=== PATIENT | male | born 1960 | race Caucasian/White ===

== ENCOUNTER 2017-12-24 14:59 | Inpatient (IN) | payer MEDICARE, MEDICAID ==
[~2017-12-24] VITALS: Ht 185.4 cm; Wt 98.1 kg
[~2017-12-24 14:59] MED LIST: HYDR-3972 PO; IBUP-1984 PO; LISI1TAB11 PO
[2017-12-24] MEDS ORDERED: aspirin 81mg tab.chew PO ONE ×2 (15:15→19:05)
[2017-12-24 15:32] LABS: BASOPHILS # (AUTO) 0.1 X10'3 (0-0.2); BASOPHILS % (AUTO) 0.6 % (0-1); EOSINOPHILS # (AUTO) 0.3 X10'3 (0-0.9); HEMATOCRIT 46.7 % (42.0-52.0); LYMPHOCYTES # (AUTO) 2.7 X10'3 (1.1-4.8); LYMPHOCYTES % (AUTO) 20.4 % (21-51); MEAN CORPUSCULAR HEMOGLOBIN 30.7 PG (27.0-31.0); MEAN CORPUSCULAR HGB CONC 34.3 % (33.0-36.5); MEAN CORPUSCULAR VOLUME 89.4 FL (78-98); MEAN PLATELET VOLUME 9.3 FL (7.4-10.4); MONOCYTES # (AUTO) 0.8 X10'3 (0-0.9); MONOCYTES % (AUTO) 6.2 % (2-12); NEUTROPHILS # (AUTO) 9.1 X10'3 (1.8-7.7); NEUTROPHILS % (AUTO) 70.8 % (42-75); PLATELET COUNT 240 X10'3 (140-440); RED BLOOD COUNT 5.22 X10'6 (4.70-6.10); RED CELL DISTRIBUTION WIDTH 12.5 % (11.5-14.5)
[2017-12-24 15:42] LABS: INR 0.9 INR; PARTIAL THROMBOPLASTIN TIME 26 SECONDS (22-32); PROTHROMBIN TIME 9.7 SECONDS (9.0-12.0)
[2017-12-24 15:47] LABS: ALANINE AMINOTRANSFERASE 20 U/L (12-78); ALBUMIN 3.8 G/DL (3.4-5.0); ALKALINE PHOSPHATASE 90 IU/L (46-116); ANION GAP 11 (8-16); ASPARTATE AMINO TRANSFERASE 12 U/L (10-37); BILIRUBIN,TOTAL 0.5 MG/DL (0.1-1.0); BLOOD UREA NITROGEN 22 MG/DL (7-18); BUN/CREATININE RATIO 20.6 (5.4-32.0); CALCIUM 9.4 MG/DL (8.5-10.1); CHLORIDE 105 MMOL/L (99-107); CREATININE 1.07 MG/DL (0.60-1.10); GLUCOSE 87 MG/DL (70-104); POTASSIUM 3.9 MMOL/L (3.5-5.1); SODIUM 141 MMOL/L (135-145); TOTAL CARBON DIOXIDE 24.9 MMOL/L (24-32); TOTAL PROTEIN 7.6 G/DL (6.4-8.2); eGFR 71 ML/MIN
[2017-12-24] MEDS ORDERED: nitroGLYCERIN 0.4mg/hour patch TD ONE (19:05)
[2017-12-24] MEDS ORDERED: NO HOME MEDS (19:51)
[2017-12-24] MEDS ORDERED: ibuprofen tablet 400 MG TABLET PO ONE (20:00)
[2017-12-24] MEDS ORDERED: ondansetron/PF 4mg/2ml inj IV PRN (21:30)
[2017-12-24] MEDS ORDERED: dextrose ORAL solution 15 GM/59 ML bottle PO PRN ×2 (21:30)
[2017-12-24] MEDS ORDERED: potassium Cl 20 mEq SR tablet PO PRN ×2 (21:30)
[2017-12-24] MEDS ORDERED: aminophylline 250mg/10ml inj. IV PRN (21:30)
[2017-12-24] MEDS ORDERED: insulin Lispro (HumaLOG) vial - multi-dose SQ SCH (21:30)
[2017-12-24] MEDS ORDERED: magnesium 4gm in 100ml NS 100 ML IV PRN (21:30)
[2017-12-24] MEDS ORDERED: acetaminophen 325mg tablet PO PRN (21:30)
[2017-12-24] MEDS ORDERED: potassium Cl 40MEQ/NS 500ml 500 ML IV PRN ×2 (21:30)
[2017-12-24] MEDS ORDERED: nitroGLYCERIN 0.4mg SUBLingual tab SL PRN (21:30)
[2017-12-24] MEDS ORDERED: mag hydrox/Alum hydrox/simeth 30ml oral suspension PO PRN (21:30)
[2017-12-24] MEDS ORDERED: metoprolol tartrate 1mg/ml inj IV PRN (21:30)
[2017-12-24] MEDS ORDERED: regadenoson 0.4mg/5ml syringe IV PRN (21:30)
[2017-12-24] MEDS ORDERED: MESSAGE TO PHARMACY PO ONE (21:30)
[2017-12-24] MEDS ORDERED: magnesium 2GM in 50ml NS 50 ML IV PRN (21:30)
[2017-12-24] MEDS ORDERED: dextrose 50%-water 50ml dispensing syringe IV PRN ×2 (21:30)
[2017-12-24] MEDS ORDERED: glucagon, human recombinant 1mg kit SUBCUT PRN (21:30)
[2017-12-24] MEDS ORDERED: magnesium hydroxide 30ml (MOM) UD suspension PO PRN (21:30)
[2017-12-24] MEDS ORDERED: ipratropium/albuterol 3ml nebule NEB PRN (21:30)
[2017-12-24] MEDS ORDERED: enoxaparin 100mg/ml syringe SQ SCH (21:30)
[2017-12-24 22:01] LABS: HEMOGLOBIN A1C 5.5 % (4.5-6.2)
[2017-12-24 23:15] VITALS: BP 116/79
[2017-12-25] VITALS (9 sets, daily range): BP systolic 115–141; BP diastolic 53–87
[2017-12-25] MEDS: heparin, porcine 5000 units/ml vial SQ SCH ×2 (03:35→08:00)
[2017-12-25 04:13] LABS: ALANINE AMINOTRANSFERASE 19 U/L (12-78); ALBUMIN 3.4 G/DL (3.4-5.0); ALBUMIN/GLOBULIN RATIO 1.1 (1.1-1.5); ALKALINE PHOSPHATASE 80 IU/L (46-116); ANION GAP 8 (8-16); ASPARTATE AMINO TRANSFERASE 10 U/L (10-37); BILIRUBIN,TOTAL 0.4 MG/DL (0.1-1.0); BLOOD UREA NITROGEN 26 MG/DL (7-18); BUN/CREATININE RATIO 24.1 (5.4-32.0); CALCIUM 9.3 MG/DL (8.5-10.1); CHLORIDE 108 MMOL/L (99-107); CHOLESTEROL 199 MG/DL (0-200); CREATININE 1.08 MG/DL (0.60-1.10); GLUCOSE 110 MG/DL (70-104); SODIUM 142 MMOL/L (135-145); TOTAL CARBON DIOXIDE 26.4 MMOL/L (24-32); TOTAL PROTEIN 6.6 G/DL (6.4-8.2); eGFR 71 ML/MIN
[2017-12-25 04:14] LABS: CHOL/HDL RATIO 4.6 (0.00-4.99); HDL CHOLESTEROL 43 MG/DL (35-60); LDL CHOLESTEROL 132 MG/DL (50-100); TRIGLYCERIDES 172 MG/DL (20-135)
[2017-12-25 05:44] LABS: BASOPHILS # (AUTO) 0.1 X10'3 (0-0.2); BASOPHILS % (AUTO) 0.6 % (0-1); EOSINOPHILS # (AUTO) 0.4 X10'3 (0-0.9); EOSINOPHILS % (AUTO) 3.9 % (0-6); HEMATOCRIT 45.2 % (42.0-52.0); HEMOGLOBIN 15.9 g/dl (14.0-17.9); LYMPHOCYTES # (AUTO) 2.5 X10'3 (1.1-4.8); LYMPHOCYTES % (AUTO) 22.7 % (21-51); MEAN CORPUSCULAR HEMOGLOBIN 31.5 PG (27.0-31.0); MEAN CORPUSCULAR HGB CONC 35.2 % (33.0-36.5); MEAN CORPUSCULAR VOLUME 89.3 FL (78-98); MEAN PLATELET VOLUME 10.4 FL (7.4-10.4); MONOCYTES # (AUTO) 0.7 X10'3 (0-0.9); MONOCYTES % (AUTO) 6.1 % (2-12); NEUTROPHILS # (AUTO) 7.2 X10'3 (1.8-7.7); NEUTROPHILS % (AUTO) 66.7 % (42-75); PLATELET COUNT 205 X10'3 (140-440); RED BLOOD COUNT 5.06 X10'6 (4.70-6.10); RED CELL DISTRIBUTION WIDTH 13.3 % (11.5-14.5); WHITE BLOOD COUNT 10.9 X10'3 (4.5-11.0)
[2017-12-25] MEDS ORDERED: acetaminophen 325mg tablet PO PRN (07:05)
[2017-12-25] MEDS ORDERED: FLU VACC QS2017-18 36MOS UP/PF 60 MCG/0.5 ML SYRINGE IMVAC ONE (08:00)
[2017-12-25] MEDS ORDERED: K and/or MAG REPLACEMENT MC SCH (08:00)
[2017-12-25] MEDS ORDERED: aminophylline inj. 0 ML IV ONE (09:35)
[2017-12-25] MEDS ORDERED: regadenoson 0.4mg/5ml syringe IV ONE (09:35)
[2017-12-25] MEDS ORDERED: ALBU8HFA PO (12:44)
[2017-12-25] MEDS ORDERED: NICO-630 TOP (12:44)
[2017-12-25] MEDS ORDERED: nicotine 14mg patch - 24hr TD SCH (13:00)
[2017-12-25] MEDS ORDERED: insulin glargine (Lantus) pen - multi-dose SQ SCH (21:00)
== END 2017-12-25 14:00 | disposition home or self-care (01) | DRG 204 ==
LOC: ER 14:59 → ED HOLD 21:29 → SUR 3N 23:10
PROVIDERS: ADMIT Family Medicine; ATTEND Family Medicine
PROC: 4A02XM4 Measurement of Cardiac Total Activity, External Approach (ICD-10-PCS; principal; 2017-12-25)
PROC: 3E073KZ Introduction of Other Diagnostic Substance into Coronary Artery, Percutaneous Approach (ICD-10-PCS; 2017-12-25)
DX: R07.81 Pleurodynia (principal); E11.9 Type 2 diabetes mellitus without complications; E78.5 Hyperlipidemia, unspecified; I10 Essential (primary) hypertension; E78.00 Pure hypercholesterolemia, unspecified; F17.219 Nicotine dependence, cigarettes, with unspecified nicotine-induced disorders; Z79.899 Other long term (current) drug therapy; Z85.841 Personal history of malignant neoplasm of brain; Z82.49 Family history of ischemic heart disease and other diseases of the circulatory system
CPT/HCPCS: 36415; 71045; 78452; 80053; 80061; 82948; 83036; 83605; 83735; 84484; 85025; 85610; 85730; 87040; 87070; 87077; 87186; 93005; 93017; 93306; 94667; 94760; 99285; A9500; J0280; J1644; J1650; J1815; Q2037

== ENCOUNTER 2020-08-19 11:28 | Emergency (ER) | payer MEDICARE, MEDICAID ==
[~2020-08-19] VITALS: Ht 182.9 cm; Wt 131.8 kg
[2020-08-19] MEDS ORDERED: albuterol 2.5 MG/3 ML nebule NEB ONE ×2 (11:50→13:20)
[2020-08-19] MEDS ORDERED: methylPREDNISolone sod succ 125mg/2ml vial IV ONE (11:50)
--- NOTE | 2020-08-19 12:04 | NUR ---
pt does not know if he has been exposed to covid but works at [employer] states he wares a mask all day when at work started to become short of breath yesterday 08/18 around 10 am used inhaler with little help shortness of breath getting worse so he came in to be seen
[2020-08-19 12:20] LABS: BASOPHILS # (AUTO) 0.1 X10'3 (0-0.2); BASOPHILS % (AUTO) 0.8 % (0-1); EOSINOPHILS # (AUTO) 0.5 X10'3 (0-0.9); EOSINOPHILS % (AUTO) 3.9 % (0-6); HEMATOCRIT 44.2 % (42.0-52.0); HEMOGLOBIN 14.8 g/dl (14.0-17.9); LYMPHOCYTES # (AUTO) 1.1 X10'3 (1.1-4.8); LYMPHOCYTES % (AUTO) 9.3 % (21-51); MEAN CORPUSCULAR HEMOGLOBIN 30.1 PG (27.0-31.0); MEAN CORPUSCULAR HGB CONC 33.4 g/dL (33.0-36.5); MEAN CORPUSCULAR VOLUME 90.1 FL (78-98); MEAN PLATELET VOLUME 9.1 FL (7.4-10.4); MONOCYTES # (AUTO) 0.6 X10'3 (0-0.9); NEUTROPHILS # (AUTO) 9.4 X10'3 (1.8-7.7); PLATELET COUNT 222 X10'3 (140-440); RED BLOOD COUNT 4.91 X10'6 (4.70-6.10); RED CELL DISTRIBUTION WIDTH 14.3 % (11.5-14.5); WHITE BLOOD COUNT 11.6 X10'3 (4.5-11.0)
[2020-08-19 12:27] LABS: ALANINE AMINOTRANSFERASE 24 U/L (12-78); ALBUMIN 3.8 G/DL (3.4-5.0); ALBUMIN/GLOBULIN RATIO 1.1 (1.1-1.5); ALKALINE PHOSPHATASE 104 IU/L (46-116); ANION GAP 10 (8-16); ASPARTATE AMINO TRANSFERASE 11 U/L (10-37); BILIRUBIN,TOTAL 0.6 MG/DL (0.1-1.0); BLOOD UREA NITROGEN 13 MG/DL (7-18); BUN/CREATININE RATIO 12.1 (5.4-32.0); CHLORIDE 108 MMOL/L (99-107); CREATININE 1.07 MG/DL (0.60-1.10); GLUCOSE 130 MG/DL (70-104); POTASSIUM 3.8 MMOL/L (3.5-5.1); SODIUM 142 MMOL/L (135-145); TOTAL CARBON DIOXIDE 23.9 MMOL/L (24-32); TOTAL PROTEIN 7.4 G/DL (6.4-8.2); eGFR 71 ML/MIN
[2020-08-19] MEDS ORDERED: magnesium 2GM in 50ml NS 50 ML IV ONE (13:00)
[2020-08-19] MEDS ORDERED: terbutaline 1 mg/ml inj SQ STA (15:19)
[2020-08-19] MEDS ORDERED: ALBU90AE (15:22)
[2020-08-19] MEDS ORDERED: OMEP-50 PO (15:22)
[2020-08-19] MEDS ORDERED: LISI10TA4 (15:22)
[2020-08-19] MEDS ORDERED: albuterol 2.5 MG/3 ML nebule CONTNEB PRN (15:25)
[2020-08-19 15:38] VITALS: BP 168/92
--- NOTE | 2020-08-19 15:39 | NUR ---
pt states that the breathing is better than what it was
[2020-08-19] MEDS ORDERED: IPRA3AMP31 IH (17:17)
[2020-08-19] MEDS ORDERED: PRED20TA PO (17:17)
== END 2020-08-19 17:54 | disposition home or self-care (01) ==
LOC: ER 11:28
DX: J45.901 Unspecified asthma with (acute) exacerbation (principal); I10 Essential (primary) hypertension; E11.9 Type 2 diabetes mellitus without complications; E78.00 Pure hypercholesterolemia, unspecified; Z20.828 Contact with and (suspected) exposure to other viral communicable diseases
CPT/HCPCS: 36415; 71045; 80053; 85025; 87635; 93005; 94640; 94644; 94760; 96365; 96372; 96375; 99285; C9803; J2930; J3105; J3475; A7015

== ENCOUNTER 2020-08-23 12:51 | Emergency (ER) | payer MEDICARE, MEDICAID ==
[~2020-08-23] VITALS: Ht 182.9 cm; Wt 127.3 kg
[~2020-08-23 12:51] MED LIST changes: +ALBU90AE; -HYDR-3972 PO; -IBUP-1984 PO; +IPRA3AMP31 IH; +LISI10TA4; -LISI1TAB11 PO; +OMEP-50 PO; +PRED20TA PO
[2020-08-23] MEDS ORDERED: acetaminophen 325mg tablet PO STA (13:11)
[2020-08-23] MEDS ORDERED: dexamethasone sod phosphate 10mg/ml inj IV STA (13:11)
[2020-08-23] MEDS ORDERED: normal saline 1000ML IV soln IV ONE (13:15)
[2020-08-23] MEDS ORDERED: CefTRIAXone 2gm/D5W 50ml BAG 50 ML IV ONE (13:15)
[2020-08-23] MEDS ORDERED: azithromycin/NS 500mg/250ml 250 ML IV ONE (13:15)
[2020-08-23] MEDS ORDERED: ipratropium/albuterol 3ml nebule NEB ONE (13:15)
[2020-08-23 13:42] LABS: BASOPHILS % (AUTO) 0.2 % (0-1); EOSINOPHILS % (AUTO) 0.3 % (0-6); HEMATOCRIT 43.3 % (42.0-52.0); HEMOGLOBIN 14.2 g/dl (14.0-17.9); LYMPHOCYTES # (AUTO) 1.1 X10'3 (1.1-4.8); LYMPHOCYTES % (AUTO) 7.2 % (21-51); MEAN CORPUSCULAR HEMOGLOBIN 29.6 PG (27.0-31.0); MEAN CORPUSCULAR HGB CONC 32.8 g/dL (33.0-36.5); MEAN CORPUSCULAR VOLUME 90.3 FL (78-98); MEAN PLATELET VOLUME 8.6 FL (7.4-10.4); MONOCYTES # (AUTO) 0.9 X10'3 (0-0.9); MONOCYTES % (AUTO) 5.8 % (2-12); NEUTROPHILS # (AUTO) 13.2 X10'3 (1.8-7.7); NEUTROPHILS % (AUTO) 86.5 % (42-75); PLATELET COUNT 264 X10'3 (140-440); RED CELL DISTRIBUTION WIDTH 14.9 % (11.5-14.5); WHITE BLOOD COUNT 15.3 X10'3 (4.5-11.0)
[2020-08-23 13:57] LABS: ALANINE AMINOTRANSFERASE 23 U/L (12-78); ALBUMIN 3.6 G/DL (3.4-5.0); ALKALINE PHOSPHATASE 94 IU/L (46-116); ANION GAP 8 (8-16); ASPARTATE AMINO TRANSFERASE 9 U/L (10-37); BILIRUBIN,TOTAL 0.4 MG/DL (0.1-1.0); BLOOD UREA NITROGEN 20 MG/DL (7-18); BUN/CREATININE RATIO 20.2 (5.4-32.0); CALCIUM 9.4 MG/DL (8.5-10.1); CHLORIDE 105 MMOL/L (99-107); CREATININE 0.99 MG/DL (0.60-1.10); GLUCOSE 125 MG/DL (70-104); POTASSIUM 4.2 MMOL/L (3.5-5.1); SODIUM 140 MMOL/L (135-145); TOTAL CARBON DIOXIDE 26.6 MMOL/L (24-32); TOTAL PROTEIN 7.2 G/DL (6.4-8.2); eGFR 77 ML/MIN
[2020-08-23] MEDS ORDERED: LEVO500T89 PO (14:35)
[2020-08-23] MEDS ORDERED: PRED10TA23 PO (14:35)
[2020-08-23 14:38] VITALS: BP 176/99
--- NOTE | 2020-08-23 14:40 | NUR ---
COVID SWAB COLLECTED. PT RESTING ON GURNEY AND DENIES ANY REQUESTS AT THIS TIME. CALL LIGHT IN REACH.
[2020-08-23 15:01] LABS: TOTAL CELLS COUNTED 100
[2020-08-23 15:02] LABS: PLATELET ESTIMATE NORMAL
--- NOTE | 2020-08-23 15:13 | NUR ---
RT at bedside for breathing tx.
[2020-08-23] MEDS ORDERED: ketorolac trometh. 30mg/ml inj. IV ONE (15:45)
== END 2020-08-23 16:14 | disposition home or self-care (01) ==
LOC: ER 12:52
DX: J40 Bronchitis, not specified as acute or chronic (principal); Z20.828 Contact with and (suspected) exposure to other viral communicable diseases; E78.00 Pure hypercholesterolemia, unspecified; I10 Essential (primary) hypertension; E11.9 Type 2 diabetes mellitus without complications; Z79.2 Long term (current) use of antibiotics; Z79.899 Other long term (current) drug therapy; Z72.0 Tobacco use
CPT/HCPCS: 36415; 71045; 80053; 83605; 84145; 85007; 85025; 87040; 93005; 94640; 96365; 96367; 96375; 99285; J0456; J0696; J1100; J1885; J7030; 94760

== ENCOUNTER 2021-06-14 05:19 | Day surgery (SDC) | payer MEDICARE, MEDICAID ==
[2021-06-06 15:03] LABS: BASOPHILS # (AUTO) 0.1 X10'3 (0-0.2); EOSINOPHILS # (AUTO) 0.3 X10'3 (0-0.9); EOSINOPHILS % (AUTO) 2.6 % (0-6); LYMPHOCYTES # (AUTO) 2.2 X10'3 (1.1-4.8); LYMPHOCYTES % (AUTO) 18.2 % (21-51); MEAN CORPUSCULAR HEMOGLOBIN 30.4 PG (27.0-31.0); MEAN CORPUSCULAR HGB CONC 33.7 g/dL (33.0-36.5); MEAN CORPUSCULAR VOLUME 90.2 FL (78-98); MEAN PLATELET VOLUME 9.5 FL (7.4-10.4); MONOCYTES # (AUTO) 0.8 X10'3 (0-0.9); MONOCYTES % (AUTO) 6.5 % (2-12); NEUTROPHILS # (AUTO) 8.6 X10'3 (1.8-7.7); NEUTROPHILS % (AUTO) 71.7 % (42-75); PRE OP HEMOGLOBIN 15.2 g/dL (14.0-17.9); PRE OP PLATELET COUNT 258 X10'3 (140-440); RED BLOOD COUNT 4.99 X10'6 (4.70-6.10); RED CELL DISTRIBUTION WIDTH 14.1 % (11.5-14.5)
[2021-06-06 15:21] LABS: ALBUMIN 3.9 G/DL (3.4-5.0); ALBUMIN/GLOBULIN RATIO 1.2 (1.1-1.5); ALKALINE PHOSPHATASE 131 IU/L (46-116); BLOOD UREA NITROGEN 16 MG/DL (7-18); BUN/CREATININE RATIO 13.1 (5.4-32.0); CALCIUM 8.5 MG/DL (8.5-10.1); CHLORIDE 107 MMOL/L (99-107); CREATININE 1.22 MG/DL (0.60-1.10); PRE OP ALT 21 U/L (30-65); PRE OP ANION GAP 12 (8-16); PRE OP AST 12 U/L (10-37); PRE OP BILIRUB, TOTAL 1.1 MG/DL (0.0-1.0); PRE OP GLUCOSE 126 MG/DL (70-104); PRE OP POTASSIUM 3.7 MMOL/L (3.4-5.1); PRE OP SODIUM 142 MMOL/L (135-145); TOTAL CARBON DIOXIDE 23.5 MMOL/L (24-32); TOTAL PROTEIN 7.1 G/DL (6.4-8.2); eGFR 61 ML/MIN
[2021-06-14] VITALS (11 sets, daily range): BP systolic 137–157; BP diastolic 70–95
[~2021-06-14] VITALS: Ht 182.9 cm; Wt 129.3 kg
[~2021-06-14 05:19] MED LIST changes: -ALBU90AE; +ALBU90AE INH; +ATOR40TA72 PO; +FLUT100B3 INH; -IPRA3AMP31 IH; +LISI10TA27 PO; -LISI10TA4; -PRED20TA PO; +ringers solution, lacted 1,000 ML IV SCH
[2021-06-14] MEDS ORDERED: albuterol 2.5 MG/3 ML nebule NEB ONE (05:30)
[2021-06-14] MEDS ORDERED: famotidine 20mg tablet PO ONE (05:30)
[2021-06-14] MEDS ORDERED: vancomycin 1,500 MG in NS 300ml IV soln IV ONE (05:30)
[2021-06-14] MEDS ORDERED: ceFAZolin inj. 3,000 MG in normal saline 100ml IV soln 100 ML IV ONE (05:30)
[2021-06-14] MEDS ORDERED: triamcinolone acetonide 40mg/ml inj ONE (06:56)
[2021-06-14] MEDS ORDERED: BUPIVAcaine 0.5% inj/PF 30 ML ONE (06:57)
[2021-06-14] MEDS ORDERED: fentaNYL /PF 50mcg/ml 5ml ampule ONE (07:15)
[2021-06-14] MEDS ORDERED: midazolam 1 mg/ML 2ml injection ONE (07:15)
[2021-06-14] MEDS ORDERED: dexamethasone sod phosphate 10mg/ml inj ONE (07:15)
[2021-06-14] MEDS ORDERED: sevoflurane 250ml liquid IH ONE (07:15)
[2021-06-14] MEDS ORDERED: ondansetron/PF 4mg/2ml inj ONE (07:15)
[2021-06-14] MEDS ORDERED: LIDOcaine 2% (20mg/ml) 5ml vial ONE (07:19)
[2021-06-14] MEDS ORDERED: propofol inj 20 ML IV ONE (07:19)
[2021-06-14] MEDS ORDERED: morphine 4 MG/ML inj SYRINge IV PRN (08:15)
[2021-06-14] MEDS ORDERED: meperidine/PF 25mg/ml syringe IV PRN ×3 (08:15)
[2021-06-14] MEDS ORDERED: morphine 2 MG/ML inj. syringe IV PRN (08:15)
[2021-06-14] MEDS ORDERED: proCHLORperazine 10 MG/2 ml inj IV PRN (08:15)
[2021-06-14] MEDS ORDERED: ondansetron/PF 4mg/2ml inj IV PRN (08:15)
[2021-06-14] MEDS ORDERED: ringers solution, lacted 1,000 ML IV SCH (08:15)
[2021-06-14] MEDS ORDERED: ketorolac trometh. 30mg/ml inj. ONE (09:03)
--- NOTE | 2021-06-14 09:17 | NUR ---
Received from OR via [facility], accompanied by Anesthesiologist RITIKA and report given by Anesthesiolgist. PATIENT WITH 20G PIV IN LEFT UE RUNNING LR AT 100. BILAT KNEE BIAS DRESSINGS PRESENT THAT ARE CDI. VSS. MEDICATED FOR PAIN UPON ARRIVAL. Addendum: 06/14/21 at 0924 by Shayan Massey RN, RN Amended: Links added.
[2021-06-14] MEDS ORDERED: HYDROcodone/acetaminophen 10/325mg tab PO ONE (09:50)
--- NOTE | 2021-06-14 10:27 | NUR ---
ALL DC CRITERIA FOR HOME HAS BEEN MET. IV TAKEN OUT WITHOUT COMPLICATIONS. PAIN PILLS ADMINISTERED EARLIER. GAVE ALL INSTRUCTIONS TO REGARDING PRESCRIPTION, SLEEP APNEA, GETTING A STUDY DONE IF PATIENT AUDIBLY SNORES, PAIN MED PRESCRIPTION REHAB LIAISON AND WHO TO CALL IF SCRIPT NOT E SCRIPTED IN TIME. AND PATIENT WELL AWARE AND UNDERSTOOD ALL DC INSTRUCTIONS. Addendum: 06/14/21 at 1049 by Shayan Massey RN, RN Amended: Links added.
== END 2021-06-14 09:17 | disposition home or self-care (01) ==
LOC: PAS 05:19
PROVIDERS: ATTEND Orthopaedic Surgery
DX: S83.231A Complex tear of medial meniscus, current injury, right knee, initial encounter (principal); S83.232A Complex tear of medial meniscus, current injury, left knee, initial encounter; S83.281A Other tear of lateral meniscus, current injury, right knee, initial encounter; S83.282A Other tear of lateral meniscus, current injury, left knee, initial encounter; M94.261 Chondromalacia, right knee; M94.262 Chondromalacia, left knee; F31.81 Bipolar II disorder; N40.0 Benign prostatic hyperplasia without lower urinary tract symptoms; G89.4 Chronic pain syndrome; J44.9 Chronic obstructive pulmonary disease, unspecified; K21.9 Gastro-esophageal reflux disease without esophagitis; E03.9 Hypothyroidism, unspecified; M10.9 Gout, unspecified; I10 Essential (primary) hypertension; E78.5 Hyperlipidemia, unspecified; E66.01 Morbid (severe) obesity due to excess calories; Z68.38 Body mass index [BMI] 38.0-38.9, adult; F17.210 Nicotine dependence, cigarettes, uncomplicated; M17.0 Bilateral primary osteoarthritis of knee; Z98.890 Other specified postprocedural states; Z85.841 Personal history of malignant neoplasm of brain; Z79.899 Other long term (current) drug therapy; Z20.822 Contact with and (suspected) exposure to COVID-19; X58.XXXA Exposure to other specified factors, initial encounter; Y93.89 Activity, other specified; Y92.89 Other specified places as the place of occurrence of the external cause; Y99.8 Other external cause status
CPT/HCPCS: 29873; 29879; 29880; 36415; 80053; 82948; 85025; 93005; 94640; 94760; J0690; J1885; J2001; J2175; J2250; J2270; J2704; J3010; J3301; J3370; J7040; J7120; U0003; U0005; Z7506; Z7508; Z7512; A4215; A4618; A6250; A6449; A7000; J1100; J2405

== ENCOUNTER → 2022-11-15 | Day surgery (SDC) | payer MEDICARE, MEDICAID ==
[2022-11-08 15:36] LABS: BASOPHILS # (AUTO) 0.1 X10'3 (0-0.2); BASOPHILS % (AUTO) 0.8 % (0-1); EOSINOPHILS # (AUTO) 0.4 X10'3 (0-0.9); EOSINOPHILS % (AUTO) 3.5 % (0-6); LYMPHOCYTES # (AUTO) 1.9 X10'3 (1.1-4.8); LYMPHOCYTES % (AUTO) 17.7 % (21-51); MEAN CORPUSCULAR HEMOGLOBIN 30.3 PG (27.0-31.0); MEAN CORPUSCULAR HGB CONC 33.3 g/dL (33.0-36.5); MEAN CORPUSCULAR VOLUME 90.8 FL (78-98); MEAN PLATELET VOLUME 9.2 FL (7.4-10.4); MONOCYTES # (AUTO) 0.8 X10'3 (0-0.9); MONOCYTES % (AUTO) 7.2 % (2-12); NEUTROPHILS # (AUTO) 7.8 X10'3 (1.8-7.7); NEUTROPHILS % (AUTO) 70.8 % (42-75); PRE OP HEMATOCRIT 42.7 % (42.0-52.0); PRE OP HEMOGLOBIN 14.2 g/dL (14.0-17.9); PRE OP PLATELET COUNT 229 X10'3 (140-440); RED CELL DISTRIBUTION WIDTH 14.4 % (11.5-14.5)
[2022-11-08 15:37] LABS: CLARITY,URINE CLEAR (Clear); COLOR,URINE YELLOW (Yellow); GLUCOSE, URINE NEGATIVE (Neg); KETONES,URINE TRACE mg/dl (Neg); LEUKOCYTE ESTERASE ,URINE NEGATIVE (Neg); NITRITES, URINE NEGATIVE (Neg); OCCULT BLOOD,URINE NEGATIVE (Neg); PROTEIN,URINE NEGATIVE (Neg); UROBILINOGEN,URINE 0.2 E.U/dL (0.2-1.0)
[2022-11-08 15:39] LABS: UA COLLECTION TYPE CLN CATCH MIDSTREAM
[2022-11-08 15:54] LABS: ALBUMIN 3.8 G/DL (3.4-5.0); ALBUMIN/GLOBULIN RATIO 1.1 (1.1-1.5); ALKALINE PHOSPHATASE 132 IU/L (46-116); BLOOD UREA NITROGEN 24 MG/DL (7-18); BUN/CREATININE RATIO 14.8 (5.4-32.0); CALCIUM 8.9 MG/DL (8.5-10.1); CHLORIDE 107 MMOL/L (99-107); CREATININE 1.62 MG/DL (0.60-1.10); PRE OP ALT 15 U/L (30-65); PRE OP ANION GAP 9 (8-16); PRE OP AST 15 U/L (10-37); PRE OP BILIRUB, TOTAL 0.4 MG/DL (0.0-1.0); PRE OP GLUCOSE 139 MG/DL (70-104); PRE OP POTASSIUM 4.4 MMOL/L (3.4-5.1); PRE OP SODIUM 139 MMOL/L (135-145); TOTAL CARBON DIOXIDE 22.9 MMOL/L (24-32); TOTAL PROTEIN 7.2 G/DL (6.4-8.2); eGFR 44 ML/MIN
[2022-11-15] VITALS (9 sets, daily range): BP systolic 131–155; BP diastolic 80–101
[~2022-11-15] VITALS: Ht 182.9 cm; Wt 141.1 kg
[~2022-11-15] MED LIST changes: -ALBU90AE INH; +BUPIVAcaine 0.5% inj/PF 30 ML ONE; +BUPR-72 PO; +DIPH25CA83 PO; -FLUT100B3 INH; +FLUT1BLS3 INH; +GABA300C; +HYDROcodone/acetaminophen 10/325mg tab PO ONE; -OMEP-50 PO; +OMEP20CA16 PO; +OXYC1TAB17 PO; +ROPIVAcaine 0.5% (5mg/ml) 30ml vial ONE; +albuterol 2.5 MG/3 ML nebule NEB ONE; +bacitracin 15gm ointment TP ONE; +ceFAZolin inj. 3,000 MG in normal saline 100ml IV soln 100 ML IV ONE; +cloNIDine hcl/PF 100mcg/ml inj ONE; +dexamethasone sod phosphate 4mg/ml inj. ONE; +famotidine 20mg tablet PO ONE; +fentaNYL/PF 50MCG/1 ML 2ML syringe ONE; +meperidine/PF 25mg/ml syringe IV PRN; +midazolam 1 mg/ML 2ml injection ONE; +morphine 2 MG/ML inj. syringe IV PRN; +normal saline 1000ml 500 ML IV SCH; +ondansetron/PF 4mg/2ml inj IV PRN; +proCHLORperazine 10 MG/2 ml inj IV PRN; +propofol inj 20 ML IV ONE; +sevoflurane 250ml liquid IH ONE
[2022-11-15] MEDS: morphine 4 MG/ML inj SYRINge IV PRN ×3 (10:35→10:56)
--- NOTE | 2022-11-15 11:46 | NUR ---
I HAVE REVIEWED D/C INSTRUCTIONS WITH PATIENT AND THEY HAVE VERBALIZED UNDERSTANDING OF INSTRUCTIONS. PATIENT D/C HOME WITH ALL BELONGINGS AND FAMILY GAVE TRANSPORT Addendum: 11/15/22 at 1150 by Karolina Arnold RN Amended: Links added.
== END | disposition home or self-care (01) ==
LOC: PAS 05:25
PROVIDERS: ATTEND Podiatrist Foot & Ankle Surgery
DX: T84.84XA Pain due to internal orthopedic prosthetic devices, implants and grafts, initial encounter (principal); M21.42 Flat foot [pes planus] (acquired), left foot; G89.18 Other acute postprocedural pain; F31.81 Bipolar II disorder; N40.0 Benign prostatic hyperplasia without lower urinary tract symptoms; G89.4 Chronic pain syndrome; I10 Essential (primary) hypertension; K21.9 Gastro-esophageal reflux disease without esophagitis; J44.9 Chronic obstructive pulmonary disease, unspecified; M10.9 Gout, unspecified; E78.5 Hyperlipidemia, unspecified; E66.01 Morbid (severe) obesity due to excess calories; Z68.41 Body mass index [BMI] 40.0-44.9, adult; M17.0 Bilateral primary osteoarthritis of knee; M16.11 Unilateral primary osteoarthritis, right hip; Z98.890 Other specified postprocedural states; Z79.899 Other long term (current) drug therapy; Z85.89 Personal history of malignant neoplasm of other organs and systems; F17.210 Nicotine dependence, cigarettes, uncomplicated; Y83.8 Other surgical procedures as the cause of abnormal reaction of the patient, or of later complication, without mention of misadventure at the time of the procedure; Y92.89 Other specified places as the place of occurrence of the external cause
CPT/HCPCS: 20680; 28300; 36415; 64445; 73620; 76000; 80053; 81003; 82948; 85025; 93005; 94640; 94760; A6223; C1713; J0690; J0735; J1100; J2175; J2250; J2270; J2405; J2704; J2795; J3010; J3490; J7030; S0020; Z7506; Z7508; Z7512; A4618; A6253; A6449; A7000; J7120

== ENCOUNTER 2024-02-18 15:39 | Emergency (ER) | payer MEDICARE, MEDICAID ==
[~2024-02-18] VITALS: Ht 182.9 cm; Wt 130.0 kg
[~2024-02-18 15:39] MED LIST changes: -BUPIVAcaine 0.5% inj/PF 30 ML ONE; -HYDROcodone/acetaminophen 10/325mg tab PO ONE; -ROPIVAcaine 0.5% (5mg/ml) 30ml vial ONE; -albuterol 2.5 MG/3 ML nebule NEB ONE; -bacitracin 15gm ointment TP ONE; -ceFAZolin inj. 3,000 MG in normal saline 100ml IV soln 100 ML IV ONE; -cloNIDine hcl/PF 100mcg/ml inj ONE; -dexamethasone sod phosphate 4mg/ml inj. ONE; -famotidine 20mg tablet PO ONE; -fentaNYL/PF 50MCG/1 ML 2ML syringe ONE; -meperidine/PF 25mg/ml syringe IV PRN; -midazolam 1 mg/ML 2ml injection ONE; -morphine 2 MG/ML inj. syringe IV PRN; -normal saline 1000ml 500 ML IV SCH; -ondansetron/PF 4mg/2ml inj IV PRN; -proCHLORperazine 10 MG/2 ml inj IV PRN; -propofol inj 20 ML IV ONE; -ringers solution, lacted 1,000 ML IV SCH; -sevoflurane 250ml liquid IH ONE
[2024-02-18 16:59] LABS: BASOPHILS # (AUTO) 0.1 X10'3 (0-0.2); BASOPHILS % (AUTO) 0.9 % (0-1); EOSINOPHILS # (AUTO) 0.3 X10'3 (0-0.9); EOSINOPHILS % (AUTO) 2.2 % (0-6); HEMATOCRIT 43.3 % (42.0-52.0); HEMOGLOBIN 14.4 g/dl (14.0-17.9); LYMPHOCYTES # (AUTO) 2.3 X10'3 (1.1-4.8); LYMPHOCYTES % (AUTO) 14.6 % (21-51); MEAN CORPUSCULAR HEMOGLOBIN 29.9 PG (27.0-31.0); MEAN CORPUSCULAR HGB CONC 33.1 g/dL (33.0-36.5); MEAN CORPUSCULAR VOLUME 90.4 FL (78-98); MEAN PLATELET VOLUME 9.5 FL (7.4-10.4); MONOCYTES % (AUTO) 6.7 % (2-12); NEUTROPHILS # (AUTO) 11.8 X10'3 (1.8-7.7); NEUTROPHILS % (AUTO) 75.6 % (42-75); PLATELET COUNT 254 X10'3 (140-440); RED CELL DISTRIBUTION WIDTH 14.6 % (11.5-14.5); WHITE BLOOD COUNT 15.5 X10'3 (4.5-11.0)
[2024-02-18 17:09] LABS: ALBUMIN 3.8 G/DL (3.4-5.0); ANION GAP 10 (8-16); BLOOD UREA NITROGEN 29 MG/DL (7-18); BUN/CREATININE RATIO 17.1 (10.0-20.0); CHLORIDE 109 MMOL/L (99-107); GLUCOSE 96 MG/DL (70-104); SODIUM 141 MMOL/L (135-145); eCRCL 49 ML/MIN; eGFR 41 ML/MIN
[2024-02-18] MEDS: normal saline 1000ml 1,000 ML IV ONE (23:32)
[2024-02-18] MEDS ORDERED: iohexol 350MG/ML 100ml bottle IV ONE (23:43)
[2024-02-19 01:24] LABS: BILIRUBIN,URINE NEGATIVE (Neg); CLARITY,URINE CLEAR (Clear); COLOR,URINE YELLOW (Yellow); GLUCOSE, URINE NEGATIVE (Neg); KETONES,URINE NEGATIVE (Neg); LEUKOCYTE ESTERASE ,URINE NEGATIVE (Neg); NITRITES, URINE NEGATIVE (Neg); OCCULT BLOOD,URINE NEGATIVE (Neg); PH,URINE 5.5 (4.8-8.0); PROTEIN,URINE NEGATIVE (Neg); UROBILINOGEN,URINE 0.2 E.U/dL (0.2-1.0)
[2024-02-19 01:29] LABS: UA COLLECTION TYPE NON-SPECIFIED
[2024-02-19 01:47] VITALS: BP 165/70; PULSE 63; RESP 16; TEMP 97.8; O2SAT 98
== END 2024-02-19 01:50 | disposition home or self-care (01) ==
LOC: ER 15:40
DX: R42 Dizziness and giddiness (principal); E87.8 Other disorders of electrolyte and fluid balance, not elsewhere classified; E78.00 Pure hypercholesterolemia, unspecified; I10 Essential (primary) hypertension; E11.9 Type 2 diabetes mellitus without complications; Z79.51 Long term (current) use of inhaled steroids
CPT/HCPCS: 36415; 70450; 70496; 70498; 72125; 80048; 81003; 84484; 85025; 85651; 96360; 96361; 99285; J3490; J7030; Q9967